=== PATIENT | male | born 1960 | race African-American/Black ===

== ENCOUNTER → 2016-12-12 | Outpatient (CLI) | payer OTHER ==
[2014-02-14 15:32] VITALS: BP 154/96
[~2016-12-12] MED LIST: REGADENOSON 0.4 MG/5 ML DISP.SYRIN. IV ONE
--- NOTE | 2016-12-12 10:48 | CARD ---
APPROVED REPORT EXAM: Two-dimensional and M-mode echocardiogram with Doppler and color Doppler. Other Information Quality : GoodHR: 76bpm Rhythm : NSR INDICATION Chest Pain 2D DIMENSIONS RVDd2.6 (2.9-3.5cm)Left Atrium(2D)3.2 (1.6-4.0cm) IVSd1.3 (0.7-1.1cm)Aortic Root(2D)2.6 (2.0-3.7cm) LVDd4.8 (3.9-5.9cm)LVOT Diameter2.2 (1.8-2.4cm) PWd1.1 (0.7-1.1cm)LVDs3.2 (2.5-4.0cm) FS (%) 34.2 %SV67.8 ml LVEF(%)63.1 (>50%) Aortic Valve AoV Peak Mike.145.7cm/sAoV VTI31.1cm AO Peak GR.8.5mmHgLVOT Peak Mike.99.7cm/s AO Mean GR.5mmHgAVA (VMAX)2.66cm2 Mitral Valve MV E Ommhqsjd52.9cm/sMV DECEL POYH305ev MV A Lepmougb69.9cm/sE/A Ratio1.3 MV A Inoxyhgz42kt Tricuspid Valve TR P. Mfhufrcg907ra/sTR Peak Gr.26mmHg Pulmonary Vein S1 Kaezkdex45.7cm/sD2 Osbrtxdi44.3cm/s PVa oqpfvaga20piqn LEFT VENTRICLE The left ventricle is normal size. There is mild left ventricular hypertrophy. The left ventricular s ystolic function is normal. The Ejection Fraction is 65-70%. There is normal LV segmental wall motion . The left ventricular diastolic function and filling is normal for age. RIGHT VENTRICLE The right ventricle is normal size. There is normal right ventricular wall thickness. The right ventr icular systolic function is normal. ATRIA The left atrium is mildly dilated. The right atrium size is normal. The interatrial septum is intact with no evidence for an atrial septal defect or patent foramen ovale as noted on 2-D or Doppler imagi ng. AORTIC VALVE The aortic valve is mildly thickened. The aortic valve is trileaflet. Doppler and Color Flow revealed no significant aortic regurgitation. There is no significant aortic valvular stenosis. MITRAL VALVE The mitral valve leaflets are thickened. There is no evidence of mitral valve prolapse. There is no m itral valve stenosis. Doppler and Color Flow revealed mild mitral regurgitation. TRICUSPID VALVE Doppler and Color Flow revealed trace to mild tricuspid regurgitation. The pulmonary artery systolic pressure is estimated at 29 mmHg. There is no pulmonary hypertension. PULMONIC VALVE Doppler and Color Flow revealed no pulmonic valvular regurgitation. There is no pulmonic valvular didi nosis. GREAT VESSELS The aortic root is normal in size. The ascending aorta is normal in size. The pulmonary artery is nor mal. The IVC is normal in size and collapses >50% with inspiration. PERICARDIAL EFFUSION There is small left pleural effusion. There is no evidence of significant pericardial effusion. Critical Notification Critical Value: No <Conclusion> The left ventricular systolic function is normal. The Ejection Fraction is 65-70%. There is normal LV segmental wall motion. Mild mitral regurgitation. Trace to mild tricuspid regurgitation. The pulmonary artery systolic pressure is estimated at 29 mmHg. There is no evidence of significant pericardial effusion.
--- NOTE | 2016-12-12 16:14 | RAD ---
APPROVED REPORT Test Type: Exercise Stress Nurse/Tech: Gisele Horn R.N. Test Indications: chest pain Cardiac History: htn, Medications: see ehr Medical History: see ehr Resting ECG: sr Resting Heart Rate: 77 bpm Resting Blood Pressure: 133/69mmHg Pretest Chest Pain: No chest pain Nurse/Tech Notes lungs cta, heart tones regular, good radial pulse Consent: The procedure was explained to the patient in lay terms. Informed consent was witnessed. Pasha eout was entered into [employer]. History and Stress Test performed by Gisele Horn R.N. Pharm. Details Pharmacologic stress testing was performed using 0.4mg per 5ml of regadenoson given intravenously ove r 7-10 seconds. Stress Symptoms No chest pain or symptoms. POST EXERCISE Reason for Termination: Reached target heart rate Target HR: Yes Max HR: 144 bpm 87% of Maximum Predicted HR: 165 bpm Exercise duration: 8:34 min:sec, 3 Stage Exercise capacity: 10.0METs Max Blood Pressure: 164/64mmHg Blood Pressure response to exercise: Normal blood pressure response during stress. Heart Rate response to exercise: normal Chest Pain: No. Arrhythmia: No. ST Change: No. INTERPRETATION Stress EKG Conclusion: No evidence of stress induced EKG changes. Imaging Protocol IMAGE PROTOCOL: Rest Tc-99m/stress Tc-99m 1 day Rest: Stress: Viability: Radiopharm.Tc99m WvhqramjuNs10c Sestamibi Dose10.7mCi 34mCi Duration 15min. 10min. Img Date 12/12/2016 12/12/2016 Inj-Img Ruju29llh. 60min. Post-Injection Exercise: one minute Rest Admin Site:IV - Left AntecubitalAdministrator:SALOME Price Stress Admin Site: IV - Left AntecubitalAdministrator: Liban Mckay, RT (R)(N) STRESS DATA End Diast. Vol.115.0mlAv. Heart Rate96.0bpm End Syst. Vol.32.0mlCO Index BSA0.0L/min Myocardial Cfnz685.0gEject. Osayhxvk45.0% Stress Rates Pk. Fill Rate4.04EDV/secLVtime Pk. Fill 175.54msec Pk. Empty Rate5.59ESV/secLVtime Pk. Wiuiu508.45msec 1/3 Pk. Fill1.62EDV/sec Stress Scores Regional WT0.00Summed WT2.00 Regional WM0.00Summed WM0.00 The rest and stress images show normal perfusion, normal contraction and thickening. LV Perf. Quant 17 Seg. SSS0.00 17 Seg. SRS0.00 17 Seg. SDS0.00 Stress Defect Extent (% LAD)0.00Rest Defect Extent (% LAD)0.00Rev. Defect Extent (% LAD)0.00 Stress Defect Extent (% LCX) 0.00Rest Defect Extent (% LCX)0.00Rev. Defect Extent (% LCX)0.00 Stress Defect Extent (% RCA)0.00Rest Defect Extent (% RCA)0.00Rev. Defect Extent (% RCA)0.00 Stress Defect Extent (% ZACK)0.00Rest Defect Extent (% ZACK)0.00Rev. Defect Extent (% ZACK)0.00 Other Information Quality:Good Risk Assessment: Low Risk Conclusion 1. No evidence of stress induced EKG changes. 2. Normal perfusion at stress/rest. 3. Low risk study. EF > 70%.
== END | disposition home or self-care (01) ==
LOC: NM 08:40
PROVIDERS: ATTEND Internal Medicine Cardiovascular Disease
DX: I08.1 Rheumatic disorders of both mitral and tricuspid valves (principal)
CPT/HCPCS: 78452; 93017; 93306; 96374; 96375; 96376; A9500; J2785

== ENCOUNTER 2018-04-14 01:21 | Emergency (ER) | payer OTHER ==
[~2018-04-14] VITALS: Ht 180.3 cm; Wt 113.4 kg
--- NOTE | 2018-04-14 02:28 | PHYS DOC ---
Past Medical History Past Medical History: Fibromyalgia, High Cholesterol, Other Additional Past Medical Histor: chronic back pain Past Surgical History: No Surgical History Alcohol Use: None Drug Use: None Adult General Chief Complaint Chief Complaint: LOWER EXT PAIN HPI HPI Is a 57-year-old gentleman presents to the emergency department with a chief complaint of right knee pain. He states that 2 weeks ago he started to develop right inner knee pain and tenderness. He denies any swelling of this area, redness of this area. He denies any previous episodes. He denies any specific trauma or injury. He states he gets worse with manipulation, palpation, pulling his shoes off. States it gets better after he walks for a while but is bad when he initially stands up to walk. He denies any fevers, chills, immunosuppression , IV drug use, chest pain, shortness of breath, pleuritic pain, hemoptysis. Review of Systems Review of Systems Constitutional: Denies fever or chills Eyes: Denies change in visual acuity, redness, or eye pain HENT: Denies nasal congestion or sore throat Respiratory: Denies cough or shortness of breath Cardiovascular: No additional information not addressed in HPI GI: Denies abdominal pain, nausea, vomiting, bloody stools or diarrhea : Denies dysuria or hematuria Musculoskeletal: Denies back pain Integument: Denies rash or skin lesions Neurologic: Denies headache, focal weakness or sensory changes Endocrine: Denies polyuria or polydipsia All other systems were reviewed and found to be within normal limits, except as documented in this note. Family History Family History no significant past family history Allergies Allergies Allergies Coded Allergies Type Severity Reaction Last Updated Verified No Known Drug Allergies 02/14/14 No Physical Exam Physical Exam GENERAL: Awake, alert, no acute distress HEAD/EYES: Normocephalic, EOMI ENT Airway patent, mucous membranes moist NECK: Supple, no meningismus, no swelling RESP: No respiratory distress, symmetrical expansion CV: Normal peripheral perfusion ABD/GI: Non distended SKIN: Warm, dry EXT: Neurovascularly intact and skin intact in the right lower extremity, no cellulitis, no joint effusion, no ligamentous instability on valgus/varus strain , anterior/posterior drawer. There is tenderness over the medial upper calf, medial lower thigh, medial knee, popliteal fossa NEURO: Normal motor observed PSYCH: Cooperative, appropriate affect Current Patient Data Vital Signs Vital Signs Date Time Temp Pulse Resp B/P (MAP) Pulse Ox O2 Delivery O2 Flow Rate FiO2 04/14/18 01:32 98.2 78 18 145/79 (101) 95 Room Air 98.2 EKG EKG [] Radiology/Procedures Radiology/Procedures [] Course & Med Decision Making Course & Med Decision Making Pertinent Labs and Imaging studies reviewed. (See chart for details) Differential diagnosis includes but not limited to: Anserine bursitis, Osteoarthritis, inflammatory arthritis, myofascial strain, fibromyalgia, tendinitis, internal derangement of the knee, ruptured Penny cyst, I doubt serious bacterial illness involving the knee joint. We will check x-ray to screen for stress fracture. Venous ultrasound to rule out DVT. 3:13 AM. 3 view x-ray of the right knee interpreted by me reveals no acute displaced fracture or dislocation. There is an abnormality to the patella of uncertain significance, probably normal variant, this area is not tender. Discussed this with the patient and advised to follow-up with orthopedic surgery. Official radiology interpretation to follow. Ultrasound negative for DVT. Diagnosis: Anserine bursitis. Plan follow-up with orthopedic surgery. Anti-inflammatories rest, low dose corticosteroid. Dragon Disclaimer Dragon Disclaimer This electronic medical record was generated, in whole or in part, using a voice recognition dictation system. Departure Departure Impression: Primary Impression: Pes anserine bursitis Disposition: 01 HOME, SELF-CARE Condition: STABLE Referrals: MIREYA IZAGUIRRE MD (PCP) LAURI HAMLIN MD Patient Instructions: Pes Anserinus Syndrome with Rehab-[facility] Scripts Prednisone (PREDNISONE) 20 Mg Tablet 1 TAB PO BID for 5 Days, #10 TAB Prov: JELANI HALEY DO 04/14/18 JELANI HALEY DO Apr 14, 2018 02:28
[2018-04-14] MEDS ORDERED: PRED20TA PO (03:16)
[2018-04-14 03:30] VITALS: BP 169/71
--- NOTE | 2018-04-14 03:37 | RAD ---
INDICATION: RT MEDIAL KNEE THIGH PAIN, NO KNOWN INJURY [id number] COMPARISON: None. FINDINGS: Focused ultrasound images are obtained of the subcutaneous soft tissues at the right medial knee. Subcutaneous fat is identified as well as the patient's musculature and cortex of osseous structures. No drainable fluid collection or mass IMPRESSION: 1. No drainable fluid collection or mass seen at the medial knee at area of interest. Electronically signed by: Vimal Manzano MD (04/14/2018 3:34 AM) [facility]
--- NOTE | 2018-04-14 08:12 | RAD ---
Right knee radiograph 04/14/2018 2:30 AM INDICATION: Right knee pain and tenderness for 2 days COMPARISON: None available. TECHNIQUE: 3 views of the right knee are provided. FINDINGS: There is no acute fracture or dislocation. Bipartite patella versus remote healed fracture. There is a small knee joint effusion. Bone mineralization is within normal limits. Joint spaces are maintained. Mild regional soft tissue swelling. There is no soft tissue gas or osseous erosion. IMPRESSION: No acute fracture or dislocation. There is a small knee joint effusion. Electronically signed by: Patricia Martin MD (04/14/2018 8:09 AM) [facility]
== END 2018-04-14 04:11 | disposition home or self-care (01) ==
LOC: ER 01:21
DX: M71.561 Other bursitis, not elsewhere classified, right knee (principal); M79.7 Fibromyalgia; G89.29 Other chronic pain; E78.00 Pure hypercholesterolemia, unspecified
CPT/HCPCS: 73562; 76881; 99284-25

== ENCOUNTER 2021-07-31 19:45 | Emergency (ER) | payer OTHER ==
[~2021-07-31] VITALS: Ht 180.3 cm; Wt 117.3 kg
[~2021-07-31 19:45] MED LIST changes: +PRED20TA PO; -REGADENOSON 0.4 MG/5 ML DISP.SYRIN. IV ONE
--- NOTE | 2021-07-31 20:38 | PHYS DOC ---
Past Medical History Past Medical History: Fibromyalgia, High Cholesterol, Other Additional Past Medical Histor: chronic back pain (CAROLINA RUIZ APRN) Past Surgical History: No Surgical History (CAROLINA RUIZ APRN) Smoking Status: Never Smoker Alcohol Use: None Drug Use: None (CAROLINA RUIZ APRN) General Adult EDM: Chief Complaint: LOWER EXT PAIN HPI: HPI: Patient is a 60-year-old male who presents to the emergency department for left knee pain. Patient reports that he fell onto his knees 2 weeks ago at work and his pain started 1 week later. He rates his pain 8 out of 10. He reports that most of his pain is located to the medial aspect of his left knee. He does report mild swelling of his knee. He states that he saw his primary care provider and was told to take Tylenol and ibuprofen and has been taking ibuprofen 800 mg. Patient reports that he got out of bed today and felt a pop in his knee and when that happened his pain went away but it started as he began to walk throughout the day. Patient is able to bear weight and ambulate but states that his pain is worse with movement and weightbearing. He denies any chest pain, shortness of breath, fevers. (CAROLINA RUIZ APRN) Review of Systems: Review of Systems: 14 body systems of the review of systems have been reviewed. See HPI for pertinent positive and negative responses, otherwise all other systems are negative, nonpertinent or noncontributory (CAROLINA RUIZ APRN) Heart Score: C/O Chest Pain: No Risk Factors: Risk Factors: DM, Current or recent (<one month) smoker, HTN, HLP, family history of CAD, obesity. Risk Scores: Score 0 - 3: 2.5% MACE over next 6 weeks - Discharge Home Score 4 - 6: 20.3% MACE over next 6 weeks - Admit for Clinical Observation Score 7 - 10: 72.7% MACE over next 6 weeks - Early Invasive Strategies (CAROLINA RUIZ APRN) Allergies: Allergies: Allergies Coded Allergies Type Severity Reaction Last Updated Verified No Known Drug Allergies 02/14/14 No (CAROLINA RUIZ APRN) Physical Exam: PE: Constitutional: Well developed, well nourished, no acute distress, non-toxic appearance. [] HENT: Normocephalic, atraumatic, bilateral external ears normal, oropharynx moist, no oral exudates, nose normal. [] Eyes: PERRL, EOMI, conjunctiva normal, no discharge. [] Neck: Normal range of motion, no tenderness, supple, no stridor. [] Cardiovascular:Heart rate regular rhythm, no murmur [] Lungs & Thorax: Bilateral breath sounds clear to auscultation [] Abdomen: Bowel sounds normal, soft, no tenderness, no masses, no pulsatile masses. [] Skin: Warm, dry, no erythema, no rash. [] Back: Normal range of motion Extremities: No tenderness, no cyanosis, no clubbing, ROM intact, no edema. Left knee: Mild swelling noted to anterior aspect of left knee, range of motion intact, neuro intact, no obvious deformities, pain with palpation noted to medial aspect of left knee Neurologic: Alert and oriented X 3, normal motor function, normal sensory function, no focal deficits noted. [] Psychologic: Affect normal, judgement normal, mood normal. [] (CAROLINA RUIZ APRN) EKG: EKG: [] (CAROLINA RUIZ APRN) Radiology/Procedures: Radiology/Procedures: []PROCEDURE: KNEE LEFT 3V KNEE 3 VIEWS LEFT Clinical Indication: Reason: knee injury and pain / Spl. Instructions: / History: Comparison: None. Findings: There is no acute fracture or dislocation. There are tiny tricompartmental marginal osteophytes. There is moderate narrowing of the medial compartment. There is a patellar enthesophyte. The patella is in anatomic position. There is no soft tissue abnormality. Question small joint effusion. IMPRESSION: 1. No acute fracture. 2. Small joint effusion. 3. Mild arthropathy. Electronically signed by: Randell Zamora MD (07/31/2021 9:12 PM) [facility] DICTATED and SIGNED BY: RANDELL ZAMORA MD DATE: 07/31/21 [id number] (CAROLINA RUIZ APRN) Course & Med Decision Making: Course & Med Decision Making Pertinent Labs and Imaging studies reviewed. (See chart for details) [] Patient was seen in the emergency department for left knee pain that started 1 week after he fell onto his knees. An x-ray was performed that showed no acute findings but did show effusion and some arthritis. Patient's pain was treated in the emergency department. Patient's knee was placed in [place] wrap. He was educated on the rice protocol. Patient advised to take anti-inflammatory medications for his pain.Wells score 0. Ultrasound was offered for patient but was declined. I discussed with patient all findings and diagnostic testing as well as the need to follow-up with PCP for further evaluation and treatment or return to the ER if any new or worsening symptoms. Strict return precautions were also discussed at length. Patient voiced understanding and agreement with the plan. Patient is hemodynamically stable at the time of disposition. (CAROLINA RUIZ APRN) Course & Med Decision Making Patients Care and treatment plan provided by ER Nurse Practitioner. I was available for consult. Patient's chart reviewed. (MAGGIE SORIANO DO) Dragon Disclaimer: Dragon Disclaimer: This electronic medical record was generated, in whole or in part, using a voice recognition dictation system. (CAROLINA RUIZ APRN) Departure Departure Impression: Primary Impression: Knee pain Qualified Codes: M25.562 - Pain in left knee Disposition: HOME / SELF CARE / HOMELESS Condition: GOOD Referrals: MIREYA IZAGUIRRE MD (PCP) Patient Instructions: RICE - Routine Care for Injuries Additional Instructions: You were seen in the emergency department for left knee pain. An x-ray was performed that showed arthritis in your knee with a little bit of fluid on it. This will likely improve over time. Your symptoms may be improved by something called the rice protocol. This is rest, ice, compression, elevation. Please follow-up when doing intense exercises that may make the pain worse. Sometimes gentle stretching can provide relief, but be careful to injury. It is important to perform gentle range of motion exercises to prevent stiff joints and chronic pain. Use ice packs over the affected areas to help decrease your pain. For the first 24 hours you can apply ice 20 minutes on 20 minutes off for 4 times per day. Sometimes compression such as the use of an [place] wrap can help with the swelling. You may also elevate the affected area to help with the swelling. You can take Tylenol and ibuprofen for pain at home. Follow-up with your primary care provider tomorrow regarding your ER visit. Please return to the emergency department if you develop worsening of your pain, inability to bear weight or walk, decreased range of motion or decreased sensation in your extremity. Scripts Hydrocodone/Acetaminophen (Hydrocodone-Acetamin 5-325 mg) 1 Each Tablet 1 EACH PO Q6-8HRS PRN for PAIN for 2 Days, #8 TAB 0 Refills Prov: CAROLINA RUIZ APRN 07/31/21 CAROLINA RUIZ APRN Jul 31, 2021 20:37 MAGGIE SORIANO DO Aug 01, 2021 06:07
[2021-07-31] MEDS ORDERED: HYDROcodone/APAP 5/325MG 1 TAB TABLET PO ONE (20:45)
--- NOTE | 2021-07-31 21:14 | RAD ---
KNEE 3 VIEWS LEFT Clinical Indication: Reason: knee injury and pain / Spl. Instructions: / History: Comparison: None. Findings: There is no acute fracture or dislocation. There are tiny tricompartmental marginal osteophytes. Ther e is moderate narrowing of the medial compartment. There is a patellar enthesophyte. The patella is i n anatomic position. There is no soft tissue abnormality. Question small joint effusion. IMPRESSION: 1. No acute fracture. 2. Small joint effusion. 3. Mild arthropathy. Electronically signed by: Randell Zamora MD (07/31/2021 9:12 PM) [facility]
[2021-07-31 21:30] VITALS: BP 169/92
[2021-07-31] MEDS ORDERED: HYDR-2759 PO (22:08)
== END 2021-07-31 22:09 | disposition home or self-care (01) ==
LOC: ER 19:45
DX: M25.562 Pain in left knee (principal); G89.11 Acute pain due to trauma; E78.00 Pure hypercholesterolemia, unspecified; G89.29 Other chronic pain; W18.39XA Other fall on same level, initial encounter; Y93.89 Activity, other specified; Y92.89 Other specified places as the place of occurrence of the external cause; Y99.8 Other external cause status
CPT/HCPCS: 73562; A6450; 99284-25